=== PATIENT | male | born 1995 | race Caucasian/White ===

== ENCOUNTER 2024-05-01 11:31 | Emergency (ER) | payer BC ==
[~2024-05-01] VITALS: Ht 175.3 cm; Wt 192.4 kg
[2024-05-01] MEDS ORDERED: CYCL-394 PO (13:22)
[2024-05-01] MEDS ORDERED: IBUP-1985 PO (13:22)
[2024-05-01] MEDS: ketorolac trometh. 30mg/ml inj. IM ONE (13:39)
[2024-05-01 13:48] VITALS: BP 147/96; PULSE 87; RESP 16; TEMP 98; O2SAT 95
== END 2024-05-01 13:43 | disposition home or self-care (01) ==
LOC: ER 11:31
DX: S39.012A Strain of muscle, fascia and tendon of lower back, initial encounter (principal); Z79.899 Other long term (current) drug therapy; Z79.1 Long term (current) use of non-steroidal anti-inflammatories (NSAID); X50.0XXA Overexertion from strenuous movement or load, initial encounter; Y93.89 Activity, other specified; Y92.89 Other specified places as the place of occurrence of the external cause; Y99.8 Other external cause status
CPT/HCPCS: 96372; 99283; J1885

== ENCOUNTER 2024-12-16 15:16 | Emergency (ER) | payer BC ==
[~2024-12-16] VITALS: Ht 175.3 cm; Wt 197.0 kg
[~2024-12-16 15:16] MED LIST: IBUP-1985 PO
[2024-12-16] MEDS ORDERED: PRED10TA23 PO (16:11)
[2024-12-16] MEDS ORDERED: ALBU8HFA INH (16:11)
[2024-12-16] MEDS: ipratropium/albuterol 3ml nebule NEB ONE (16:20)
[2024-12-16 16:24] VITALS: PULSE 103; RESP 15; O2SAT 96
[2024-12-16 16:34] VITALS: PULSE 104; RESP 16; O2SAT 98
[2024-12-16 16:39] VITALS: BP 132/70; PULSE 89; RESP 18; TEMP 98.5; O2SAT 98
== END 2024-12-16 16:43 | disposition home or self-care (01) ==
LOC: ER 15:17
DX: J20.9 Acute bronchitis, unspecified (principal); Z79.52 Long term (current) use of systemic steroids; Z79.899 Other long term (current) drug therapy
CPT/HCPCS: 71046; 94640; 94760; 99283

== ENCOUNTER 2024-12-29 13:02 | Emergency (ER) | payer BC ==
[~2024-12-29] VITALS: Ht 175.3 cm; Wt 197.4 kg
[~2024-12-29 13:02] MED LIST changes: +ALBU8HFA INH
[2024-12-29] MEDS ORDERED: IBUP-1984 PO (15:05)
[2024-12-29] MEDS ORDERED: LIDO700A32 TOP (15:05)
[2024-12-29] MEDS ORDERED: CYCL-1 PO (15:05)
[2024-12-29] MEDS: LIDOcaine 5% patch TP ONE (15:38)
[2024-12-29] MEDS: ketorolac trometh 30MG/ML vial 30 MG/ML VIAL IM ONE (15:38)
[2024-12-29 15:42] VITALS: PULSE 70
[2024-12-29 15:44] VITALS: BP 156/89; RESP 18; TEMP 98.6; O2SAT 100
== END 2024-12-29 15:49 | disposition home or self-care (01) ==
LOC: ER 13:02
DX: S29.012A Strain of muscle and tendon of back wall of thorax, initial encounter (principal); Z79.1 Long term (current) use of non-steroidal anti-inflammatories (NSAID); X58.XXXA Exposure to other specified factors, initial encounter; Y93.89 Activity, other specified; Y92.89 Other specified places as the place of occurrence of the external cause; Y99.8 Other external cause status
CPT/HCPCS: 96372; 99283; J1885